=== PATIENT | male | born 1945 | race Caucasian/White ===

== ENCOUNTER 2019-04-07 16:59 | Outpatient (REF) | payer MEDICARE, SELFPAY ==
[2019-04-07 19:24] LABS: HCT 48.1 % (40.0-50.0); HGB 15.9 g/dL (13.5-17.5); Mean Corp. HGB Concentration 33.1 g/dL (32.0-36.0); Mean Corpuscular Hemoglobin 29.2 pg (27.0-33.0); Mean Corpuscular Volume 88.3 fL (80-95); Mean Platelet Volume 11.7 fL (8.0-11.0); Platelet Count 171 x1000/uL (130-400); RBC 5.45 m/cumm (4.50-6.00); RBC Distribution Width 14.9 % (11.8-14.1); White Blood Cell Count 7.91 k/cumm (4.4-10.8)
[2019-04-07 19:43] LABS: ALT 19 U/L (12-78); AST 21 U/L (15-37); Albumin 3.3 g/dL (3.4-5.0); Alkaline Phosphatase 60 U/L (46-116); Anion Gap 12.3 mmol/L (3-11); BUN 22 mg/dL (7-18); Bilirubin, Total 0.5 mg/dL (0.2-1.0); CO2 21.7 mmol/L (21.0-32.0); CREATININE 1.28 mg/dL (0.70-1.30); Calcium 8.4 mg/dL (8.5-10.1); Chloride 109 mmol/L (98-107); Estimated GFR 54.94 (mL/min/1.73m2); Glucose 105 mg/dL (70-100); Potassium 4.2 mmol/L (3.5-5.1); Sodium 143 mmol/L (136-145); Total Protein 6.4 g/dL (6.4-8.2)
[2019-04-07 19:56] LABS: PTT Activated 25.6 sec (21.0-31.4); Prothrombin Time 10.3 sec (9.3-11.0)
== END 2019-04-07 17:19 ==
LOC: NCHCN 16:59
PROVIDERS: PCP Internal Medicine; Visit Provider Internal Medicine
DX: I48.91 Unspecified atrial fibrillation (principal); J84.9 Interstitial pulmonary disease, unspecified
CPT/HCPCS: 80053; 85027; 85610; 85730

== ENCOUNTER 2019-09-12 13:13 | Outpatient (REF) | payer MEDICARE, SELFPAY ==
[2019-09-12 19:27] LABS: Abs Immature Grans 0.03 k/cumm (0.0-0.09); Absolute Basophil Count 0.06 k/cumm (0.0-0.2); Absolute Lymphocyte Count 1.25 k/cumm (1.2-3.4); Absolute Monocyte Count 1.08 k/cumm (0.11-0.7); Absolute Neutrophil Count 7.82 k/cumm (1.2-6.7); Basophils % 0.6; Eosinophils % 5.4; HCT 49.1 % (40.0-50.0); HGB 15.9 g/dL (13.5-17.5); Immature Grans % 0.3 %; Lymphocytes % 11.5; Mean Corp. HGB Concentration 32.4 g/dL (32.0-36.0); Mean Corpuscular Hemoglobin 29.8 pg (27.0-33.0); Mean Corpuscular Volume 92.1 fL (80-95); Mean Platelet Volume 11.2 fL (8.0-11.0); Neutrophils % 72.2; Platelet Count 180 x1000/uL (130-400); RBC 5.33 m/cumm (4.50-6.00); RBC Distribution Width 15.4 % (11.8-14.1); White Blood Cell Count 10.83 k/cumm (4.4-10.8)
[2019-09-12 19:32] LABS: Absolute Eosinophil Count 0.58 k/cumm (0.0-0.7)
[2019-09-12 19:35] LABS: ALT 19 U/L (16-63); AST 21 U/L (15-37); Albumin 3.1 g/dL (3.4-5.0); Alkaline Phosphatase 60 U/L (46-116); Anion Gap 7.8 mmol/L (3-11); BUN 15 mg/dL (7-18); Bilirubin, Total 0.3 mg/dL (0.2-1.0); CO2 27.2 mmol/L (21.0-32.0); CREATININE 1.16 mg/dL (0.70-1.30); Calcium 8.6 mg/dL (8.5-10.1); Chloride 109 mmol/L (98-107); Glucose 127 mg/dL (74-106); Potassium 4.2 mmol/L (3.5-5.1); Sodium 144 mmol/L (136-145); Total Protein 5.8 g/dL (6.4-8.2)
== END 2019-09-12 13:33 ==
LOC: NCHCN 13:13
PROVIDERS: PCP Internal Medicine; Visit Provider Internal Medicine
DX: L50.1 Idiopathic urticaria (principal); L03.211 Cellulitis of face
CPT/HCPCS: 80048; 80076; 85025

== ENCOUNTER 2019-12-26 09:23 | Outpatient (REF) | payer MEDICARE, SELFPAY ==
[2019-12-26 18:57] LABS: HCT 48.5 % (40.0-50.0); HGB 16.3 g/dL (13.5-17.5); Mean Corp. HGB Concentration 33.6 g/dL (32.0-36.0); Mean Corpuscular Hemoglobin 30.7 pg (27.0-33.0); Mean Corpuscular Volume 91.3 fL (80-95); Platelet Count 169 x1000/uL (130-400); RBC 5.31 m/cumm (4.50-6.00); RBC Distribution Width 15.6 % (11.8-14.1); White Blood Cell Count 13.48 k/cumm (4.4-10.8)
[2019-12-26 19:35] LABS: ALT 25 U/L (16-63); AST 24 U/L (15-37); Albumin 3.2 g/dL (3.4-5.0); Alkaline Phosphatase 58 U/L (46-116); Anion Gap 7.8 mmol/L (3-11); BUN 19 mg/dL (7-18); Bilirubin, Total 0.6 mg/dL (0.2-1.0); CO2 28.2 mmol/L (21.0-32.0); Calcium 8.5 mg/dL (8.5-10.1); Chloride 105 mmol/L (98-107); Estimated GFR 59.02 (mL/min/1.73m2); Ferritin 315 ng/mL (26-388); Glucose 105 mg/dL (74-106); Potassium 3.8 mmol/L (3.5-5.1); Sodium 141 mmol/L (136-145); Total Protein 6.2 g/dL (6.4-8.2)
[2019-12-26 19:40] LABS: Hemoglobin A1C 6.4 % (3.8-5.6)
== END 2019-12-26 09:43 ==
LOC: NCHCN 09:23
PROVIDERS: PCP Internal Medicine; Visit Provider Internal Medicine
DX: I48.91 Unspecified atrial fibrillation (principal); R19.5 Other fecal abnormalities; R73.09 Other abnormal glucose; J84.9 Interstitial pulmonary disease, unspecified; L40.0 Psoriasis vulgaris
CPT/HCPCS: 80053; 85027; 82728; 83036

== ENCOUNTER 2020-01-20 11:53 | Outpatient (REF) | payer MEDICARE, SELFPAY ==
[2020-01-20 18:49] LABS: Abs Immature Grans 0.06 k/cumm (0.0-0.09); Absolute Monocyte Count 1.24 k/cumm (0.11-0.7); Basophils % 0.3; Eosinophils % 5.2; HCT 45.7 % (40.0-50.0); HGB 15.3 g/dL (13.5-17.5); Immature Grans % 0.5 %; Lymphocytes % 10.4; Mean Corp. HGB Concentration 33.5 g/dL (32.0-36.0); Mean Corpuscular Hemoglobin 30.6 pg (27.0-33.0); Mean Corpuscular Volume 91.4 fL (80-95); Mean Platelet Volume 11.7 fL (8.0-11.0); Monocytes % 10.7; Neutrophils % 72.9; RBC Distribution Width 14.9 % (11.8-14.1); White Blood Cell Count 11.55 k/cumm (4.4-10.8)
[2020-01-20 19:04] LABS: Absolute Basophil Count 0.03 k/cumm (0.0-0.2); Absolute Neutrophil Count 8.42 k/cumm (1.2-6.7); Platelet Count 213 x1000/uL (130-400)
[2020-01-20 19:50] LABS: ALT 21 U/L (16-63); AST 25 U/L (15-37); Albumin 3.1 g/dL (3.4-5.0); Alkaline Phosphatase 66 U/L (46-116); Anion Gap 9.1 mmol/L (3-11); BUN 22 mg/dL (7-18); Bilirubin, Total 0.3 mg/dL (0.2-1.0); CO2 25.9 mmol/L (21.0-32.0); CREATININE 1.23 mg/dL (0.70-1.30); Calcium 8.6 mg/dL (8.5-10.1); Chloride 105 mmol/L (98-107); Estimated GFR 57.37 (mL/min/1.73m2); Glucose 161 mg/dL (74-106); Magnesium 1.8 mg/dL (1.8-2.4); NT-proBNP 835 pg/mL (<300); Potassium 3.4 mmol/L (3.5-5.1); Sodium 140 mmol/L (136-145); Total Protein 6.4 g/dL (6.4-8.2)
== END 2020-01-20 12:13 ==
LOC: NCHCN 11:53
PROVIDERS: PCP Internal Medicine; Visit Provider Physician Assistant
DX: I50.9 Heart failure, unspecified (principal)
CPT/HCPCS: 80053; 83735; 83880; 85025

== ENCOUNTER 2020-11-10 16:58 | Outpatient (REF) | payer MEDICARE, SELFPAY ==
[2020-11-10 21:23] LABS: HCT 50.1 % (40.0-50.0); HGB 16.3 g/dL (13.5-17.5); MCH 29.6 pg (27.0-33.0); MCHC 32.5 % (32.0-36.0); MCV 91.1 fL (80-95); MPV 11.7 fL (8.0-11.0); Platelet Count 237 10^3/uL (130-400); RDW 14.2 % (11.8-14.1); RDW-SD 47.7 fL
[2020-11-10 21:33] LABS: ALT 17 U/L (16-63); AST 16 U/L (15-37); Albumin 3.2 g/dL (3.4-5.0); Alkaline Phosphatase 62 U/L (46-116); Anion Gap 9.1 mmol/L (3-11); BUN 20 mg/dL (7-18); Bilirubin, Total 0.4 mg/dL (0.2-1.0); CO2 27.9 mmol/L (21.0-32.0); CREATININE 1.2 mg/dL (0.70-1.30); Calcium 8.8 mg/dL (8.5-10.1); Chloride 104 mmol/L (98-107); Estimated GFR 58.86 (mL/min/1.73m2); Glucose 145 mg/dL (74-106); Potassium 4.5 mmol/L (3.5-5.1); Sodium 141 mmol/L (136-145); Total Protein 6.8 g/dL (6.4-8.2)
== END 2020-11-10 16:59 | disposition home or self-care (01) ==
LOC: NCHCN 16:58
PROVIDERS: PCP Internal Medicine; Visit Provider Internal Medicine
DX: E11.9 Type 2 diabetes mellitus without complications (principal); I48.91 Unspecified atrial fibrillation; Z79.899 Other long term (current) drug therapy
CPT/HCPCS: 80053; 85027

== ENCOUNTER 2021-02-25 17:35 | Outpatient (REF) | payer MEDICARE, SELFPAY ==
[2021-02-25 18:58] LABS: ALT 19 U/L (16-63); AST 16 U/L (15-37); Albumin 3.1 g/dL (3.4-5.0); Alkaline Phosphatase 59 U/L (46-116); Anion Gap 11.9 mmol/L (3-11); BUN 25 mg/dL (7-18); Bilirubin, Total 0.4 mg/dL (0.2-1.0); CO2 25.1 mmol/L (21.0-32.0); CREATININE 1.3 mg/dL (0.70-1.30); Calcium 8.2 mg/dL (8.5-10.1); Chloride 106 mmol/L (98-107); Estimated GFR 53.67 (mL/min/1.73m2); Glucose 133 mg/dL (74-106); HCT 47.4 % (40.0-50.0); HGB 15.4 g/dL (13.5-17.5); MCH 30.1 pg (27.0-33.0); MCHC 32.5 % (32.0-36.0); MCV 92.8 fL (80-95); MPV 11.4 fL (8.0-11.0); Platelet Count 214 10^3/uL (130-400); RBC 5.11 10^6/uL (4.36-5.78); RDW-SD 53.4 fL; Sodium 143 mmol/L (136-145); Total Protein 6.2 g/dL (6.4-8.2); WBC 14.12 10^3/uL (4.4-10.8)
[2021-02-25 19:19] LABS: D-Dimer 220 ng/mlFEU (<500)
== END 2021-02-25 17:36 | disposition home or self-care (01) ==
LOC: LBN 17:35
PROVIDERS: PCP Internal Medicine; Visit Provider Internal Medicine
DX: J84.112 Idiopathic pulmonary fibrosis (principal); Z79.899 Other long term (current) drug therapy
CPT/HCPCS: 80053; 85027; 85379